=== PATIENT | female | born 1965 ===

== ENCOUNTER 2025-04-17 19:43 | Emergency (ER) | payer MEDICAID ==
[~2025-04-17] VITALS: Ht 167.6 cm; Wt 83.0 kg
--- NOTE | 2025-04-17 20:10 | Physician Documentation ---
History of Present Illness ~ Chief Complaint: Ankle pain Stated Complaint: ANKLE PAIN Time Seen by MD: 20:05 HPI 59-year-old female who presents with a right ankle pain after an injury. She tells me that she was taking out the trash, when she stepped wrong and rolled her right ankle. She did fall down onto her right side. She states that her right hip and leg feel bruised but not broken. The pain is primarily located in the lateral right ankle. She is able to bear weight. No history of previous ankle injury. No other acute concerns. Medication Reconciliation Allergies: Coded Allergies: No Known Allergies (Unverified , 04/17/25) Review of Systems Constitutional: Denies: fever Neurological: Denies: headache Musculoskeletal: Reports: joint pain, joint swelling Physical Exam Vital Signs: Temperature: 97.6, Source: Temporal, Heart Rate: 90, Respiratory Rate: 16, BP: 107/62, Pulse Oximetry: 96, Weight: 83.000 Oxygen Flow Rate: 0 Physical Exam General: This is a pleasant and overall well-appearing middle-aged woman, at bedside HEENT: Atraumatic, oropharynx is moist Heart: Mild tachycardic, appears regular, normal perfusion to the right foot Lungs: normal work of breathing, normal oxygen saturation on room air Extremities: Warm and well-perfused Right lower extremity: The patient has focal swelling and tenderness over the lateral malleolus of the right ankle. Otherwise no focal bony point tenderness on palpation of the bones of the knee, tibia, or forefoot. No medial ankle tenderness. Normal capillary refill to the toes. Mild generalized paresthesias reported to the foot with light touch Neuro: Alert and oriented Psychiatric: Calm and cooperative with exam Progress Results/Orders Results/Orders Vital Signs 04/17/25 04/17/25 04/17/25 19:49 20:27 20:51 Temp 97.6 98.2 Pulse 90 88 Resp B/P (MAP) 107/62 143/82 Pulse Ox 96 99 O2 Flow Rate 0 EKG/XRAY/CT/US/VASC/MRI Bone/Soft Tissue X-Ray (Ext.) : Additional Comment I personally interpreted the x-ray, and it shows: Possible distal fibular avulsion fracture with soft tissue swelling. No tibial fracture. No dislo cation Medical Decision Making Additional information obtaine: N/A Findings na General Diff Dx:Considerations: Include: Fracture, Sprain Knee Diff Dx:Considerations: Unlikely: Gout Ankle Diff Dx:Considerations: Unlikely: Malunion Foot Diff Dx:Considerations: Unlikely: Gout Toe Diff Dx:Considerations: Include: Fracture Additional Comment The patient presents with lateral ankle pain after a twisting injury. She has no other evidence of injury including no head injury. X-ray shows possible fibular avulsion fracture. This appears consistent with her exam. She will be placed in a walking boot and discharged with home care instructions and orthopedic clinic follow up. Departure Time of Disposition: 20:45 Disposition: 01 HOME / SELF CARE / HOMELESS Impression: Primary Impression: Sprain of ankle Additional Impression: Avulsion fracture of distal fibula Condition: Stable Discharge Instructions: Ankle Fracture Referrals: NO PRIMARY CARE PROVIDER (PCP) Education Educated: Patient, Family Educated regarding: diagnosis, treatment, need for follow up Signature Scribe Signature: na Attestation: MALVIN Jacob MD Apr 17, 2025 20:10
--- NOTE | 2025-04-17 20:29 | RADIOLOGY REPORT ---
CLINICAL INDICATION: R/O FX, DISLOCATION TECHNIQUE: 2 radiographic views of the right ankle were obtained. Comparison: None FINDINGS/IMPRESSION: Small bony fragment inferior to the lateral malleolus and adjacent to the calcaneus with moderate lateral ankle soft tissue edema. Correlate for small avulsed bony fragment. No dislocation.
[2025-04-17 20:51] VITALS: BP 143/82; PULSE 88; RESP 16; TEMP 98.2; O2SAT 99
== END 2025-04-17 21:00 | disposition home or self-care (01) ==
LOC: ER 19:44
DX: S82.839A Other fracture of upper and lower end of unspecified fibula, initial encounter for closed fracture (principal); S93.401A Sprain of unspecified ligament of right ankle, initial encounter; X50.1XXA Overexertion from prolonged static or awkward postures, initial encounter; Y93.89 Activity, other specified; Y92.89 Other specified places as the place of occurrence of the external cause; Y99.8 Other external cause status
CPT/HCPCS: 73610; 99283; L1930